=== PATIENT | female | born 1990 | race African-American/Black ===

== ENCOUNTER 2016-08-14 17:42 | Emergency (ER) | payer OTHER ==
[~2016-08-14] VITALS: Ht 175.3 cm; Wt 115.2 kg
[~2016-08-14 17:42] MED LIST: AMOX875T PO; BENZ100C PO; IBUP-1060 PO; PRED50TA PO; PROAIR RESPICL90 MCG IH
[2016-08-14 19:27] VITALS: BP 141/80
[2016-08-14 19:42] LABS: NEG OBC UR NEG; POS OBC UR POS
[2016-08-14 20:22] LABS: GLUCOSE,URINE NEGATIVE (NEG); NITRITE,URINE NEGATIVE (NEG); PH,URINE 5.5; PROTEIN,URINE 100 mg/dL (NEG-TRACE)
[2016-08-14 20:24] LABS: BACTERIA,URINE FEW /HPF (0-FEW); RBC,URINE TNTC /HPF (0-2); SQUAMOUS EPITHELIAL CELL,UR MOD /LPF; WBC,URINE 20-40 /HPF (0-4)
--- NOTE | 2016-08-14 20:24 | PHYS DOC ---
Past Medical History Past Medical History: Fibromyalgia, Pneumonia, Other Additional Past Medical Histor: lupus Past Surgical History: No Surgical History Alcohol Use: Heavy Drug Use: None Adult General Chief Complaint Chief Complaint: VAGINAL BLEEDING HPI HPI Patient is a 26 year old female with history of fibromyalgia who presents today with vaginal bleeding for 5 weeks. Patient states she is soaking 24 feminine pads every day. She states she has used 24 feminine pads prior to coming to the ED today. Patient is also complaining of mild lower abdominal cramping with the pain intermittently for 5 weeks. Denies any chance she is . Denies any concerns for STDs. Denies using any form of control. Review of Systems Review of Systems Constitutional: Denies fever or chills [] Eyes: Denies change in visual acuity, redness, or eye pain [] HENT: Denies nasal congestion or sore throat [] Respiratory: Denies cough or shortness of breath [] Cardiovascular: No additional information not addressed in HPI [] GI: abdominal pain, and vaginal bleeding Integument: Denies rash or skin lesions [] Neurologic: Denies headache, focal weakness or sensory changes [] Endocrine: Denies polyuria or polydipsia [] Allergies Allergies Allergies Coded Allergies Type Severity Reaction Last Updated Verified No Known Drug Allergies 01/28/14 No Physical Exam Physical Exam Constitutional: Well developed, well nourished, no acute distress, non-toxic appearance. [] HENT: Normocephalic, atraumatic, bilateral external ears normal, oropharynx moist, no oral exudates, nose normal. [] Eyes: PERRLA, EOMI, conjunctiva normal, no discharge. [] Neck: Normal range of motion, no tenderness, supple, no stridor. [] Cardiovascular:Heart rate regular rhythm, no murmur [] Lungs & Thorax: Bilateral breath sounds clear to auscultation [] Abdomen: Bowel sounds normal, soft, no tenderness, no masses, no pulsatile masses. [] Pelvic exam External pelvic appears normal. Cervix was not visualized due to patient's body habitus. No CMT. No adnexal tenderness. Trace amount of blood in the vaginal vault. Skin: Warm, dry, no erythema, no rash. [] Back: No tenderness, no CVA tenderness. [] Extremities: No tenderness, no cyanosis, no clubbing, ROM intact, no edema. [] Neurologic: Alert and oriented X 3, normal motor function, normal sensory function, no focal deficits noted. [] Psychologic: Affect normal, judgement normal, mood normal. [] Current Patient Data Vital Signs Vital Signs Date Time Temp Pulse Resp B/P (MAP) Pulse Ox O2 Delivery O2 Flow Rate FiO2 08/14/16 19:27 98.6 80 18 141/80 (100) 100 Room Air 98.6 Lab Values Laboratory Tests Test 08/14/16 19:27 Urine Collection Type Unknown Urine Color Red Urine Clarity Turbid Urine pH 5.5 Urine Specific [place] 1.025 Urine Protein 100 mg/dL (NEG-TRACE) Urine Glucose (UA) Negative mg/dL (NEG) Urine Ketones (Stick) Negative mg/dL (NEG) Urine Blood Large (NEG) Urine Nitrite Negative (NEG) Urine Bilirubin (NEG) Urine Urobilinogen Dipstick 1.0 mg/dL (0.2 mg/dL) Urine Leukocyte Esterase Large (NEG) Urine RBC Tntc /HPF (0-2) Urine WBC 20-40 /HPF (0-4) Urine Squamous Epithelial Cells Mod /LPF Urine Bacteria Few /HPF (0-FEW) Urine Mucus Mod /LPF Urine Test Negative (NEG) Microbiology 08/14/16 Wet Prep - Final, Complete EKG EKG [] Radiology/Procedures Radiology/Procedures [] Course & Med Decision Making Course & Med Decision Making Pertinent Labs and Imaging studies reviewed. (See chart for details) This is a 26-year-old female patient who presents today complaining of vaginal bleeding for 5 weeks. Patient states she has been soaking 24 feminine pads in 24 hours in the last 2 days. She states she was already used 24 feminine pads prior to coming to the ED. On pelvic exam patient had trace amount of blood in the vaginal vault. Hemoglobin is 12.2 hematocrit 36%. Pelvic ultrasound was negative for any acute findings. Patient was discharged with instructions to follow-up with her DEVELOPMENTAL WRITING INSTRUCTOR as soon as she can. Dragon Disclaimer Dragon Disclaimer This electronic medical record was generated, in whole or in part, using a voice recognition dictation system. Departure Departure Impression: Primary Impression: Dysfunctional uterine bleeding Disposition: 01 HOME, SELF-CARE Condition: STABLE Referrals: FRANCK GALLEGOS MD (PCP) Follow-up with your doctor as soon as you can Patient Instructions: Uterine Bleeding, Dysfunctional, [id number] Additional Instructions: You were seen for dysfunctional uterine bleeding. Follow-up with your DEVELOPMENTAL WRITING INSTRUCTOR as soon as he can. Come back to the ED if symptoms worsen. KUSHAL COULTER APRN Aug 14, 2016 20:24
--- NOTE | 2016-08-14 21:26 | RAD ---
Exam performed: Pelvic ultrasound. Indication: Vaginal bleeding for 5 weeks, patient is not Date of Service: 09/26/2016. No priors Technique: Transabdominal and transvaginal Findings: Study somewhat limited due to patient's large body habitus. The uterus measures 9.2 x 5.4 x 4.1 cm. The endometrial stripe measures 5.7 mm. Nabothian cysts in the cervix. Bilateral ovaries are normal. The right ovary measures 3.9 x 2.1 x 2.0 cm.The left ovary measures 3.6 x 2.6 x 1.3 cm . There is a 1.7 x 1.6 x 1.0 cm cyst in the right ovary Symmetric vascularity to both ovaries. There is trace free fluid in the posterior cul-de-sac. Impression: 1. Essentially unremarkable pelvic sonogram. Electronically signed by: Mirtha Bronson MD (08/14/2016 9:23 PM)
== END 2016-08-14 22:12 | disposition home or self-care (01) ==
LOC: ER 17:42
DX: N93.8 Other specified abnormal uterine and vaginal bleeding (principal); R10.30 Lower abdominal pain, unspecified; M79.7 Fibromyalgia; M32.9 Systemic lupus erythematosus, unspecified; F10.10 Alcohol abuse, uncomplicated
CPT/HCPCS: 76856; 81001; 81025; 87491; 87591; 99285; Q0111